=== PATIENT | male | born 1980 | race African-American/Black ===

== ENCOUNTER 2022-08-24 01:25 | Emergency (ER) | payer MEDICAID ==
[~2022-08-24] VITALS: Ht 185.4 cm; Wt 99.4 kg
[2022-08-24] MEDS ORDERED: IBUPROFEN 600MG TABLET PO STA (02:07)
[2022-08-24] MEDS ORDERED: IBUP-2029 PO (03:19)
[2022-08-24 03:26] VITALS: BP 122/81
== END 2022-08-24 03:30 | disposition home or self-care (01) ==
LOC: ER 01:25
DX: J02.9 Acute pharyngitis, unspecified (principal)
CPT/HCPCS: 87070; 87430; 99283

== ENCOUNTER 2022-08-28 03:05 | Emergency (ER) | payer MEDICAID ==
[~2022-08-28] VITALS: Ht 185.4 cm; Wt 96.6 kg
[~2022-08-28 03:05] MED LIST: IBUP-2029 PO
[2022-08-28] MEDS ORDERED: IBUP-2029 PO (04:43)
[2022-08-28] MEDS ORDERED: BENZ1LOZ73 PO (04:43)
[2022-08-28] MEDS ORDERED: METH4TAB MT (04:43)
[2022-08-28 04:51] VITALS: BP 136/87
== END 2022-08-28 04:58 | disposition home or self-care (01) ==
LOC: ER 03:05
DX: J02.9 Acute pharyngitis, unspecified (principal)
CPT/HCPCS: 99283